=== PATIENT | female | born 1950 | race Caucasian/White ===

== ENCOUNTER 2017-09-22 02:32 | Outpatient (CLI) | payer MEDICARE, BC ==
[~2017-09-22 02:32] MED LIST: CITA-278 PO; DOCU100C40 PO; ENOX40SY7 SQ; META800T87 PO; MV,C1TAB35 PO; PER10325T PO
== END 2017-09-22 23:59 | disposition home or self-care (01) ==
LOC: DIABETIC 02:32
PROVIDERS: ATTEND Nurse Practitioner Family
DX: Z71.3 Dietary counseling and surveillance (principal); E16.2 Hypoglycemia, unspecified; I10 Essential (primary) hypertension; M25.561 Pain in right knee; M25.511 Pain in right shoulder; H60.501 Unspecified acute noninfective otitis externa, right ear; H66.91 Otitis media, unspecified, right ear; G47.00 Insomnia, unspecified; R41.0 Disorientation, unspecified; L29.3 Anogenital pruritus, unspecified; F32.9 Major depressive disorder, single episode, unspecified; L82.1 Other seborrheic keratosis; H60.90 Unspecified otitis externa, unspecified ear; H61.21 Impacted cerumen, right ear; F11.90 Opioid use, unspecified, uncomplicated; Z20.9 Contact with and (suspected) exposure to unspecified communicable disease; R10.9 Unspecified abdominal pain; Z96.651 Presence of right artificial knee joint; T75.3XXD Motion sickness, subsequent encounter
CPT/HCPCS: G0108